=== PATIENT | female | born 1930 | race Caucasian/White ===

== ENCOUNTER 2017-04-06 08:45 | Inpatient (IN) | payer MEDICARE, OTHER ==
[~2017-04-06] VITALS: Ht 152.4 cm; Wt 49.9 kg
[~2017-04-06 08:45] MED LIST: ALIS300T PO; ATEN100T PO; GENT30CR TP; LOSA1TAB42 PO
[2017-04-06] MEDS ORDERED: ONDANSETRON 4 MG/2 ML VIAL IV ONE (09:00)
[2017-04-06] MEDS ORDERED: MORPHINE SULFATE 2 MG/1 ML DISP.SYRIN IV ONE (09:00)
[2017-04-06 09:08] LABS: BASOPHILS # (AUTO) 0.1 K/uL (0.0-8.0); BASOPHILS % (AUTO) 0.6 % (0.0-2.0); EOSINOPHILS # (AUTO) 0.4 K/uL (0.0-0.7); EOSINOPHILS % (AUTO) 3.7 % (0.0-7.0); HEMATOCRIT 26.8 % (31.2-41.9); LYMPHOCYTES # (AUTO) 2.3 K/uL (20.0-40.0); LYMPHOCYTES % (AUTO) 24.3 % (20.5-51.5); MEAN CORPUSCULAR HEMOGLOBIN 28.5 uug (24.7-32.8); MEAN CORPUSCULAR HGB CONC 34 g/dL (32.3-35.6); MEAN CORPUSCULAR VOLUME 84.8 fL (75.5-95.3); MONOCYTES # (AUTO) 0.8 K/uL (2.0-10.0); MONOCYTES % (AUTO) 8.2 % (0.0-11.0); NEUTROPHILS % (AUTO) 63.2 % (38.5-71.5); PLATELET COUNT (AUTO) 377 K/uL (179-408); RED BLOOD CELL COUNT(AUTO) 3.16 MIL/uL (3.63-4.92); WHITE BLOOD COUNT (AUTO) 9.5 K/uL (3.8-11.8)
[2017-04-06] MEDS ORDERED: ONDANSETRON 4 MG/2 ML VIAL ONE (09:14)
[2017-04-06] MEDS ORDERED: MORPHINE SULFATE 2 MG/1 ML DISP.SYRIN ONE (09:15)
[2017-04-06 09:29] LABS: ALANINE AMINOTRANSFERASE 18 U/L (14-59); ALKALINE PHOSPHATASE 177 U/L (50-136); ASPARTATE AMINOTRANSFERASE 17 U/L (15-37); BILIRUBIN,DIRECT 0.1 mg/dL (0.0-0.2); BILIRUBIN,TOTAL 0.6 mg/dL (0.2-1.0); CARBON DIOXIDE 29 mmol/L (21-32); CHLORIDE 101 mmol/L (98-107); CREATININE 0.7 mg/dL (0.6-1.3); GLUCOSE 122 mg/dL (74-106); POTASSIUM 3.9 mmol/L (3.5-5.1); TOTAL PROTEIN, SERUM 6.7 g/dL (6.4-8.2); UREA NITROGEN, BLOOD 22 mg/dL (7-18)
[2017-04-06] MEDS ORDERED: METHIMAZOLE 5 MG TABLET PO SCH (09:45)
[2017-04-06] MEDS ORDERED: D3 (09:52)
[2017-04-06] MEDS ORDERED: TOPROL 100 MG PO (09:52)
[2017-04-06] MEDS ORDERED: CALCIUM PO (09:52)
[2017-04-06] MEDS ORDERED: LOSARTAN HCTZ PO (09:52)
[2017-04-06] MEDS ORDERED: MAGNESIUM PO (09:52)
[2017-04-06] MEDS ORDERED: [UNRECOGNIZED DRUG - OTHER] PO (09:52)
[2017-04-06] MEDS ORDERED: METHIMAZOLE 10 MG TABLET PO (09:52)
[2017-04-06] MEDS ORDERED: ZINC PO (09:52)
[2017-04-06 10:15] LABS: *BILIRUBIN,URIN NEGATIVE (NEGATIVE); *BLOOD, URINE NEGATIVE (NEGATIVE); *CLARITY,URINE SLIGHTLY CLOUDY (CLEAR); *COLOR,URINE YELLOW (YELLOW); *KETONES,URINE NEGATIVE (NEGATIVE); *PROTEIN,URINE NEGATIVE (NEGATIVE); *UROBILINOGEN,URINE 0.2 E.U./dl (NORMAL); LEUKOCYTE ESTERASE ,URINE 1+ (NEGATIVE); NITRITE, URINE POSITIVE (NEGATIVE); PH,URINE 6.5 (5.0-8.0); UGLUCOSE NEGATIVE (NEGATIVE)
[2017-04-06 10:23] LABS: BACTERIA,URINE MANY /HPF (NONE SEEN); RBC,URINE 0-3 /HPF (0-3); SQUAMOUS EPITHELIAL CELL,UR FEW /HPF (NONE SEEN); WBC,URINE 50-80 /HPF (0-3)
[2017-04-06] MEDS ORDERED: IV NS 1000 ML 1,000 ML IV PRN (11:30)
[2017-04-06] MEDS ORDERED: MORPHINE SULFATE 2 MG/1 ML DISP.SYRIN IV PRN (11:30)
[2017-04-06] MEDS ORDERED: HOME MED MISCELLANEOUS PO SCH (11:30)
[2017-04-06] MEDS ORDERED: HYDROCHLOROTHIAZIDE 12.5 MG CAPSULE PO SCH (11:30)
[2017-04-06 11:37] LABS: MAGNESIUM 1.8 mg/dL (1.8-2.4); PHOSPHOROUS 3.6 mg/dL (2.5-4.9)
[2017-04-06 11:42] VITALS: BP 143/50
[2017-04-06] MEDS: CALCIUM CARBONATE 500 MG TABLET PO SCH (13:38)
[2017-04-06] MEDS: LOSARTAN POTASSIUM 50 MG TABLET PO SCH (13:39)
[2017-04-06] MEDS: METOPROLOL SUCCINATE XL 50 MG TAB.SR.24H PO SCH (13:39)
[2017-04-06] MEDS: CHOLECALCIFEROL 1,000 UNIT TABLET PO SCH (13:40)
[2017-04-06] MEDS: MORPHINE SULFATE 4 MG/1 ML DISP.SYRIN IV PRN ×2 (13:41→19:59)
[2017-04-06 15:28] VITALS: BP 123/50
[2017-04-06] MEDS ORDERED: IV D5 1/2 NS 1000 ML 1,000 ML IV PRN (18:45)
[2017-04-06 19:00] VITALS: BP 126/54
[2017-04-07] VITALS (11 sets, daily range): BP systolic 100–148; BP diastolic 42–60
[2017-04-07] MEDS: MORPHINE SULFATE 4 MG/1 ML DISP.SYRIN IV PRN ×3 (05:06→18:21)
[2017-04-07 06:46] LABS: BASOPHILS % (AUTO) 0.5 % (0.0-2.0); EOSINOPHILS # (AUTO) 0.2 K/uL (0.0-0.7); LYMPHOCYTES # (AUTO) 1.5 K/uL (20.0-40.0); MONOCYTES # (AUTO) 0.9 K/uL (2.0-10.0); WHITE BLOOD COUNT (AUTO) 8.6 K/uL (3.8-11.8)
[2017-04-07 06:48] LABS: HEMOGLOBIN 7.6 g/dL (10.9-14.3)
[2017-04-07 06:52] LABS: CARBON DIOXIDE 31 mmol/L (21-32); CHLORIDE 100 mmol/L (98-107); CREATININE 0.6 mg/dL (0.6-1.3); GLUCOSE 129 mg/dL (74-106); MAGNESIUM 1.6 mg/dL (1.8-2.4); PHOSPHOROUS 3.1 mg/dL (2.5-4.9); POTASSIUM 4.1 mmol/L (3.5-5.1); UREA NITROGEN, BLOOD 17 mg/dL (7-18)
[2017-04-07 07:03] LABS: RED BLOOD CELL COUNT(AUTO) 2.59 MIL/uL (3.63-4.92)
[2017-04-07 07:04] LABS: HEMATOCRIT 21.8 % (31.2-41.9); MEAN CORPUSCULAR HEMOGLOBIN 28.6 uug (24.7-32.8); MEAN CORPUSCULAR HGB CONC 34 g/dL (32.3-35.6); MEAN CORPUSCULAR VOLUME 84.3 fL (75.5-95.3); NEUTROPHILS % (AUTO) 69.9 % (38.5-71.5); PLATELET COUNT (AUTO) 261 K/uL (179-408)
[2017-04-07 07:05] LABS: EOSINOPHILS % (AUTO) 1.8 % (0.0-7.0); LYMPHOCYTES % (AUTO) 17.1 % (20.5-51.5); MONOCYTES % (AUTO) 10.7 % (0.0-11.0)
[2017-04-07] MEDS: CHOLECALCIFEROL 1,000 UNIT TABLET PO SCH (09:00)
[2017-04-07] MEDS: METOPROLOL SUCCINATE XL 50 MG TAB.SR.24H PO SCH ×2 (09:00→18:08)
[2017-04-07] MEDS: LOSARTAN POTASSIUM 50 MG TABLET PO SCH (09:00)
[2017-04-07] MEDS: HYDROCHLOROTHIAZIDE 25 MG TABLET PO SCH (09:00)
[2017-04-07] MEDS: METHIMAZOLE 5 MG TABLET PO SCH ×2 (09:00→18:12)
[2017-04-07] MEDS: CALCIUM CARBONATE 500 MG TABLET PO SCH (09:00)
[2017-04-07] MEDS ORDERED: HOME MED MISCELLANEOUS PO SCH (09:00)
[2017-04-07] MEDS ORDERED: POLYMYXIN B SULFATE 500,000 UNITS, BACITRACIN 50,000 UNITS, NORMAL SALINE 20 ML MC ONE ×3 (11:15)
[2017-04-07] MEDS ORDERED: ROCURONIUM BROMIDE 50 MG/5 ML VIAL ONE (14:15)
[2017-04-07] MEDS ORDERED: SUCCINYLCHOLINE CHLORIDE 200 MG/10 ML VIAL ONE (14:15)
[2017-04-07] MEDS ORDERED: FENTANYL CITRATE 100 MCG/2 ML AMPUL ONE (15:53)
[2017-04-07] MEDS ORDERED: DEXAMETHASONE SOD PHOSPHATE 4 MG INJ IV ONE (15:59)
[2017-04-07] MEDS ORDERED: CEFAZOLIN 1 G VIAL MC ONE (15:59)
[2017-04-07] MEDS ORDERED: IV NORMAL SALINE 1000 ML BAG IV ONE (15:59)
[2017-04-07] MEDS ORDERED: SEVOFLURANE 250 ML BOTTLE IH ONE (15:59)
[2017-04-07] MEDS ORDERED: IRR NORMAL SALINE IRRIGATION 2000 ML BOTTLE IR ONE (15:59)
[2017-04-07] MEDS ORDERED: LIDOCAINE HCL 2% 20 ML VIAL MC ONE (15:59)
[2017-04-07] MEDS ORDERED: PROPOFOL 200 MG/20 ML BOTTLE IV ONE (15:59)
[2017-04-07] MEDS ORDERED: ONDANSETRON 4 MG/2 ML VIAL IV ONE (15:59)
[2017-04-07] MEDS: MAGNESIUM SULFATE/D5W 100 ML IV SCH ×2 (17:03→18:16)
[2017-04-07] MEDS ORDERED: MORPHINE SULFATE 4 MG/1 ML DISP.SYRIN IV PRN (19:00)
[2017-04-07] MEDS ORDERED: DILTIAZEM HCL IV 10 MG in IV DEXTROSE 5% 100 ML IV PRN (19:15)
[2017-04-07] MEDS ORDERED: AMIODARONE HCL IV 900 MG in IV DEXTROSE 5% 482 ML IV PRN (19:30)
[2017-04-07] MEDS ORDERED: AMIODARONE HCL IV 150 MG in IV DEXTROSE 5% 100 ML IV ONE (19:30)
[2017-04-07] MEDS: IV D5W-0.45% NS +20 KCL 1,000 ML IV PRN (19:58)
[2017-04-08] VITALS: BP 114/56
[2017-04-08 04:00] VITALS: BP 107/51
[2017-04-08 06:53] LABS: CARBON DIOXIDE 29 mmol/L (21-32); CHLORIDE 97 mmol/L (98-107); CREATININE 0.7 mg/dL (0.6-1.3); GLUCOSE 158 mg/dL (74-106); MAGNESIUM 2.1 mg/dL (1.8-2.4); POTASSIUM 4.6 mmol/L (3.5-5.1); UREA NITROGEN, BLOOD 20 mg/dL (7-18)
[2017-04-08 08:02] VITALS: BP 94/44
[2017-04-08] MEDS: HYDROCHLOROTHIAZIDE 25 MG TABLET PO SCH (09:00)
[2017-04-08] MEDS: METOPROLOL SUCCINATE XL 50 MG TAB.SR.24H PO SCH ×2 (09:00→14:48)
[2017-04-08] MEDS: LOSARTAN POTASSIUM 50 MG TABLET PO SCH (09:00)
[2017-04-08] MEDS: CHOLECALCIFEROL 1,000 UNIT TABLET PO SCH (09:22)
[2017-04-08] MEDS: CALCIUM CARBONATE 500 MG TABLET PO SCH (09:22)
[2017-04-08] MEDS: METHIMAZOLE 5 MG TABLET PO SCH ×2 (09:35→20:25)
[2017-04-08] MEDS: IV D5W-0.45% NS +20 KCL 1,000 ML IV PRN (10:11)
[2017-04-08 12:00] VITALS: BP 106/41
[2017-04-08] MEDS: PANTOPRAZOLE SODIUM 40 MG TABLET.DR PO SCH (14:11)
[2017-04-08 16:22] VITALS: BP 100/49
[2017-04-08] MEDS: ONDANSETRON 4 MG/2 ML VIAL IV PRN (17:24)
[2017-04-08 20:00] VITALS: BP 158/58
[2017-04-09 00:12] VITALS: BP 157/53
[2017-04-09 04:00] VITALS: BP 132/53
[2017-04-09 06:19] LABS: BASOPHILS % (AUTO) 0.1 % (0.0-2.0); EOSINOPHILS % (AUTO) 0.1 % (0.0-7.0); HEMATOCRIT 25.5 % (31.2-41.9); HEMOGLOBIN 8.7 g/dL (10.9-14.3); LYMPHOCYTES # (AUTO) 1.4 K/uL (20.0-40.0); LYMPHOCYTES % (AUTO) 9.2 % (20.5-51.5); MEAN CORPUSCULAR HEMOGLOBIN 28.9 uug (24.7-32.8); MEAN CORPUSCULAR HGB CONC 34 g/dL (32.3-35.6); MEAN CORPUSCULAR VOLUME 84.4 fL (75.5-95.3); MONOCYTES # (AUTO) 0.9 K/uL (2.0-10.0); MONOCYTES % (AUTO) 6.3 % (0.0-11.0); NEUTROPHILS # (AUTO) 12.5 K/uL (1.8-8.9); NEUTROPHILS % (AUTO) 84.3 % (38.5-71.5); PLATELET COUNT (AUTO) 286 K/uL (179-408); RED BLOOD CELL COUNT(AUTO) 3.03 MIL/uL (3.63-4.92); WHITE BLOOD COUNT (AUTO) 14.8 K/uL (3.8-11.8)
[2017-04-09] MEDS: PANTOPRAZOLE SODIUM 40 MG TABLET.DR PO SCH ×2 (07:00→10:11)
[2017-04-09] MEDS ORDERED: METHIMAZOLE 5 MG TABLET PO SCH (09:00)
[2017-04-09] MEDS: METHIMAZOLE 5 MG TABLET PO SCH ×2 (09:00→17:00)
[2017-04-09] MEDS: CALCIUM CARBONATE 500 MG TABLET PO SCH (10:08)
[2017-04-09] MEDS: CHOLECALCIFEROL 1,000 UNIT TABLET PO SCH (10:10)
[2017-04-09] MEDS: METOPROLOL SUCCINATE XL 50 MG TAB.SR.24H PO SCH (10:10)
[2017-04-09 11:42] VITALS: BP 148/65
[2017-04-09] MEDS: HYDROCODONE/APAP 10-325 MG TABLET PO PRN (13:18)
[2017-04-09 15:40] VITALS: BP 149/52
[2017-04-09 20:00] VITALS: BP 116/60
[2017-04-09] MEDS ORDERED: LEVOFLOXACIN 250 MG TABLET PO SCH (20:00)
[2017-04-10] VITALS: BP 115/60
[2017-04-10 04:00] VITALS: BP 110/47
[2017-04-10] MEDS: PANTOPRAZOLE SODIUM 40 MG TABLET.DR PO SCH (06:26)
[2017-04-10] MEDS: ONDANSETRON 4 MG/2 ML VIAL IV PRN (08:36)
[2017-04-10] MEDS: CALCIUM CARBONATE 500 MG TABLET PO SCH (09:00)
[2017-04-10] MEDS: METOPROLOL SUCCINATE XL 50 MG TAB.SR.24H PO SCH (09:00)
[2017-04-10] MEDS: METHIMAZOLE 5 MG TABLET PO SCH (09:00)
[2017-04-10] MEDS: CHOLECALCIFEROL 1,000 UNIT TABLET PO SCH (09:00)
[2017-04-10 11:20] VITALS: BP 141/69
[2017-04-10] MEDS: HYDROCODONE/APAP 10-325 MG TABLET PO PRN (11:33)
[2017-04-10] MEDS ORDERED: BISACODYL 10 MG SUPP.RECT RC ONE (12:45)
[2017-04-10 15:48] VITALS: BP 142/57
== END 2017-04-10 16:00 | DRG 480 ==
LOC: ER 08:45 → TELE 10:09 → TELE-TD 04-08 07:00 → TELE 04-08 15:45 → MED 04-10 15:46
PROVIDERS: ADMIT Family Medicine; ATTEND Family Medicine
PROC: 30233N1 Transfusion of Nonautologous Red Blood Cells into Peripheral Vein, Percutaneous Approach (ICD-10-PCS; 2017-04-07)
PROC: 0QS606Z Reposition Right Upper Femur with Intramedullary Internal Fixation Device, Open Approach (ICD-10-PCS; principal; 2017-04-07 13:59)
DX: S72.141A Displaced intertrochanteric fracture of right femur, initial encounter for closed fracture (principal); I50.31 Acute diastolic (congestive) heart failure; I27.20 Pulmonary hypertension, unspecified; I08.1 Rheumatic disorders of both mitral and tricuspid valves; I48.0 Paroxysmal atrial fibrillation; N39.0 Urinary tract infection, site not specified; I11.0 Hypertensive heart disease with heart failure; D64.9 Anemia, unspecified; E05.00 Thyrotoxicosis with diffuse goiter without thyrotoxic crisis or storm; Z82.49 Family history of ischemic heart disease and other diseases of the circulatory system; W18.39XA Other fall on same level, initial encounter; Y92.89 Other specified places as the place of occurrence of the external cause; K21.9 Gastro-esophageal reflux disease without esophagitis; Z96.653 Presence of artificial knee joint, bilateral; Z90.49 Acquired absence of other specified parts of digestive tract
CPT/HCPCS: 36415; 70030-TC; 70450; 71045; 72125; 73501; 73502; 76000; 83735; 84100; 85025; 85730; 86850; 86900; 86901; 86920; 87077; 87086; 92523; 93005; 93307; 97110; 97530; A4217; A4649; A4663; J0282; J0330; J0690; J1100; J2270; J2405; J3010; J3475; J3490; J7030; J7040; J7060; P9016-BL; P9021

== ENCOUNTER 2019-02-21 00:07 | Emergency (ER) | payer BC, MEDICARE ==
[~2019-02-21] VITALS: Ht 165.1 cm; Wt 65.3 kg
[~2019-02-21 00:07] MED LIST changes: -ALIS300T PO; -ATEN100T PO; +CALCIUM PO; +D3 PO; -GENT30CR TP; -LOSA1TAB42 PO; +LOSARTAN HCTZ PO; +MAGNESIUM PO; +METHIMAZOLE 10 MG TABLET PO; +TOPROL 100 MG PO; +ZINC PO; +[UNRECOGNIZED DRUG - OTHER] PO
--- NOTE | 2019-02-21 00:22 | NUR ---
Dr. Villafuerte at bedside for MSE.
[2019-02-21] MEDS ORDERED: CLON0.5T PO (00:27)
[2019-02-21] MEDS ORDERED: ESOM40CA PO (00:27)
[2019-02-21] MEDS ORDERED: MIRT15TA3 PO (00:27)
[2019-02-21] MEDS ORDERED: DIVA125T2 PO (00:27)
[2019-02-21] MEDS ORDERED: METH10TA80 PO (00:27)
[2019-02-21] MEDS ORDERED: LOSA100T3 PO (00:27)
[2019-02-21] MEDS ORDERED: QUET50TA PO (00:27)
--- NOTE | 2019-02-21 00:45 | NUR ---
Pt out of ER for CT.
[2019-02-21 00:51] LABS: BASOPHILS # (AUTO) 0.1 K/uL (0.0-8.0); BASOPHILS % (AUTO) 0.9 % (0.0-2.0); EOSINOPHILS # (AUTO) 0.2 K/uL (0.0-0.7); EOSINOPHILS % (AUTO) 1.9 % (0.0-7.0); HEMATOCRIT 29.7 % (31.2-41.9); HEMOGLOBIN 10.1 g/dL (10.9-14.3); LYMPHOCYTES # (AUTO) 2.2 K/uL (20.0-40.0); LYMPHOCYTES % (AUTO) 22.1 % (20.5-51.5); MEAN CORPUSCULAR HEMOGLOBIN 30.8 uug (24.7-32.8); MEAN CORPUSCULAR HGB CONC 34 g/dL (32.3-35.6); MEAN CORPUSCULAR VOLUME 90.1 fL (75.5-95.3); MONOCYTES # (AUTO) 0.9 K/uL (2.0-10.0); MONOCYTES % (AUTO) 9.1 % (0.0-11.0); NEUTROPHILS # (AUTO) 6.7 K/uL (1.8-8.9); PLATELET COUNT (AUTO) 396 K/uL (179-408); RED BLOOD CELL COUNT(AUTO) 3.29 MIL/uL (3.63-4.92); WHITE BLOOD COUNT (AUTO) 10.2 K/uL (3.8-11.8)
--- NOTE | 2019-02-21 01:04 | NUR ---
Pt back to ER from CT.
[2019-02-21 01:49] LABS: BILIRUBIN,DIRECT 0.1 mg/dL (0.0-0.2); BILIRUBIN,TOTAL 0.3 mg/dL (0.2-1.0); CREATININE 0.8 mg/dL (0.6-1.3); TOTAL PROTEIN, SERUM 7.1 g/dL (6.4-8.2)
[2019-02-21 01:55] LABS: THYROID STIMULATING HORMONE 38.028 mIU/mL (0.358-3.740)
--- NOTE | 2019-02-21 02:35 | NUR ---
Inserted shields catheter, pt tolerated procedure well, slight urine visible on top of tube, very little output for sample.
--- NOTE | 2019-02-21 02:50 | NUR ---
Called Dr. Liliam Ward for neurosurgery consult, left message to phone
--- NOTE | 2019-02-21 03:20 | NUR ---
Collected urine sample from [facility], sample sent to lab.
[2019-02-21] MEDS ORDERED: KETOROLAC TROMETHAMINE 15 MG INJ IVP ONE (03:30)
[2019-02-21] MEDS ORDERED: MORPHINE SULFATE 2 MG/1 ML DISP.SYRIN IV ONE ×2 (03:30→06:45)
[2019-02-21] MEDS ORDERED: MORPHINE SULFATE 2 MG/1 ML DISP.SYRIN ONE ×2 (03:39→06:35)
[2019-02-21] MEDS ORDERED: KETOROLAC TROMETHAMINE 15 MG INJ ONE (03:40)
--- NOTE | 2019-02-21 03:43 | NUR ---
2nd call placed to Dr Ward.
[2019-02-21 04:00] LABS: *CLARITY,URINE CLOUDY (CLEAR); *COLOR,URINE YELLOW (YELLOW)
[2019-02-21 04:02] LABS: PH,URINE 7.5 (5.0-8.0)
[2019-02-21 04:03] LABS: *BILIRUBIN,URIN 1+ (NEGATIVE); *BLOOD, URINE 3+ (NEGATIVE); *KETONES,URINE NEGATIVE (NEGATIVE); UGLUCOSE NEGATIVE (NEGATIVE)
[2019-02-21 04:04] LABS: *UROBILINOGEN,URINE 0.2 E.U./dl (NORMAL); LEUKOCYTE ESTERASE ,URINE 3+ (NEGATIVE); NITRITE, URINE POSITIVE (NEGATIVE)
[2019-02-21 04:08] LABS: BACTERIA,URINE MANY /HPF (NONE SEEN); RBC,URINE 80-100 /HPF (0-3); SQUAMOUS EPITHELIAL CELL,UR MODERATE /HPF (NONE SEEN); WBC,URINE TNTC /HPF (0-3)
--- NOTE | 2019-02-21 05:19 | NUR ---
Pt sleeping in bed, no acute signs of distress.
--- NOTE | 2019-02-21 05:25 | NUR ---
Called Dr. Vázquez for neurology consult.
--- NOTE | 2019-02-21 05:28 | NUR ---
Called Dr. Sanchez for neurology consult, left message.
--- NOTE | 2019-02-21 05:43 | NUR ---
Called [facility] for higher level of care transfer, spoke with Padmaja, faxed CT to
--- NOTE | 2019-02-21 06:06 | NUR ---
Received call back from Padmaja [facility], pt accepted by Dr. Peterson. Dr. Villafuerte speaking with Dr. Peterson.
[2019-02-21] MEDS ORDERED: CEFEPIME HCL 2 G in IV DEXTROSE 5% 100 ML IV ONE (06:15)
--- NOTE | 2019-02-21 06:21 | NUR ---
Called Ashlee for ACLS transport to [facility], given ETA 0760.
[2019-02-21] MEDS ORDERED: CEFEPIME HCL 1 G VIAL ONE (06:23)
--- NOTE | 2019-02-21 06:52 | NUR ---
Updated patient's daughter Gilma, .
--- NOTE | 2019-02-21 06:58 | NUR ---
Report given to Kalia Rose RN dayshift.
--- NOTE | 2019-02-21 07:04 | NUR ---
RECEIVED SHIFT REPORT FROM ARMANDO Orlando RN.
--- NOTE | 2019-02-21 07:05 | NUR ---
RECEIVED PT RESTING IN BED. AWAITING FOR TRANSPORT PICK-UP AT 0730 TO BE TRANSFERRED TO [facility]. WILL CALL TO GIVE [id number] REPORT.
--- NOTE | 2019-02-21 07:15 | NUR ---
Cefepime IV 2G stop time 07
--- NOTE | 2019-02-21 07:56 | NUR ---
TRANSFER REPORT GIVEN TO [facility] PHARMACY SPECIALIST W/ [facility].
--- NOTE | 2019-02-21 07:56 | NUR ---
GAVE REPORT TO ONI ELLISON RN, AT [facility].
--- NOTE | 2019-02-21 08:00 | NUR ---
Patient Tranfers to outside Facility Physician: DR. KIM Location: [facility].
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
== END 2019-02-21 08:03 | disposition short-term general hospital (02) ==
LOC: ER 00:11
DX: S32.018A Other fracture of first lumbar vertebra, initial encounter for closed fracture (principal); S22.078A Other fracture of T9-T10 vertebra, initial encounter for closed fracture; E03.9 Hypothyroidism, unspecified; E87.1 Hypo-osmolality and hyponatremia; D64.9 Anemia, unspecified; N39.0 Urinary tract infection, site not specified; D17.71 Benign lipomatous neoplasm of kidney; K57.30 Diverticulosis of large intestine without perforation or abscess without bleeding; K40.90 Unilateral inguinal hernia, without obstruction or gangrene, not specified as recurrent; I10 Essential (primary) hypertension; Z91.040 Latex allergy status; Z79.899 Other long term (current) drug therapy; F03.90 Unspecified dementia, unspecified severity, without behavioral disturbance, psychotic disturbance, mood disturbance, and anxiety; W22.8XXA Striking against or struck by other objects, initial encounter; Y93.89 Activity, other specified; Y92.89 Other specified places as the place of occurrence of the external cause; Y99.8 Other external cause status
CPT/HCPCS: 36415; 70450; 71045; 74176; 80048; 80076; 81000; 81001; 83880; 84443; 84484; 85025; 87040 ×2; 87086; 93005; 96365; 96375; 96376; 99291; J0692; J1885; J2270 ×2; J7060; 70030-TC; A4663; C1758